=== PATIENT | male | born 1960 | race Caucasian/White ===

== ENCOUNTER → 2023-04-03 | Outpatient (CLI) | payer BC, MEDICARE ==
[~2023-04-03] MED LIST: AMLO10 PO; ASCO1ER PO; ASCO500 PO; ASPI325 PO; ASPI325EC; ASPI81EC PO; ATOR40TA; ATOR40TA PO; C-10001000 M1; CARV25; CARV25 PO; CLOP75 PO; CYAN1000; CYAN1000 PO; CYAN500 PO; ESOM20; ESOM20 PO; FISH1000 PO; FOLI1; FOLI1 PO; FURO40 PO; Fish Oil500 M1; Hair, Skin & N1 EACH; ISOMON60ER; LANS30EC PO; LISHYD2012 PO; MULVITA PO; NIFE60ER PO; NITR.4SL; OLME20; OLME20 PO; OLME20-12. PO; RANI150 PO; RANO500T; RENEXA PO; VICODIN 5-3001 EACH
[2023-04-05 17:39] LABS: FAT, FECAL - NEUTRAL Normal (Normal); FAT, FECAL - SPLIT Normal (Normal)
== END ==
LOC: LAB SHORT 10:23
PROVIDERS: Family Medicine
DX: K52.9 Noninfective gastroenteritis and colitis, unspecified (principal)
CPT/HCPCS: 82705

== ENCOUNTER 2024-02-09 18:06 | Emergency (ER) | payer BC, MEDICARE ==
[~2024-02-09] VITALS: Ht 167.6 cm; Wt 90.7 kg
[2024-02-09 19:24] VITALS: BP 156/89
[2024-02-09] MEDS ORDERED: RX Prepack 6 Tabs Oxycodone 5mg UD ONE (21:15)
== END 2024-02-09 21:24 | disposition home or self-care (01) ==
LOC: ER 18:06
DX: K04.7 Periapical abscess without sinus (principal); I25.10 Atherosclerotic heart disease of native coronary artery without angina pectoris; I10 Essential (primary) hypertension; I25.2 Old myocardial infarction; E78.5 Hyperlipidemia, unspecified; K21.9 Gastro-esophageal reflux disease without esophagitis; Z87.891 Personal history of nicotine dependence; Z79.82 Long term (current) use of aspirin; Z79.899 Other long term (current) drug therapy
CPT/HCPCS: 99283-25; A9270

== ENCOUNTER 2024-12-19 06:35 | Day surgery (SDC) | payer BC, MEDICARE ==
[~2024-12-19] VITALS: Ht 177.8 cm; Wt 93.9 kg
[~2024-12-19 06:35] MED LIST changes: +Lidocaine 1%-Epineph 1:100000 20 ML MDV ONE
[2024-12-19] MEDS ORDERED: CeFAZolin Sodium 2,000 MG VIAL ONE (06:53)
[2024-12-19] MEDS ORDERED: PANT40 PO (07:01)
[2024-12-19] MEDS ORDERED: FURO20 PO (07:01)
[2024-12-19] MEDS ORDERED: LOSA50 PO (07:02)
[2024-12-19] MEDS ORDERED: CLOP75 PO (07:02)
[2024-12-19] MEDS ORDERED: NS 500 ML IV ONE ×3 (07:15→07:29)
--- NOTE | 2024-12-19 07:15 | NUR ---
12/19/24 0715 Irena Harmon TIME OUT PERFORMED AT BEDSIDE WITH DR MANCILLA AT 0712 IMMEDIATELY PRIOR TO INJECTION OF 8ML OF SOLUTION CONSISTING OF 9ML 1% LIDOCAINE W/EPI [id number] AND 1ML 8.4% SODIUM BICARBONATE. PATIENT TOLERATED PROCEDURE WELL.
[2024-12-19 08:07] VITALS: BP 139/75
--- NOTE | 2024-12-19 08:07 | NUR ---
12/19/24 0807 NIKOLAY ROLAND DENIES PAIN AND NAUSEA
== END 2024-12-19 08:32 | disposition home or self-care (01) ==
LOC: ORSCSDS 06:35
PROVIDERS: Orthopaedic Surgery
PROC: 0JBG0ZX Excision of Right Lower Arm Subcutaneous Tissue and Fascia, Open Approach, Diagnostic (ICD-10-PCS; principal; 2024-12-19 08:00)
PROC: 01N54ZZ Release Median Nerve, Percutaneous Endoscopic Approach (ICD-10-PCS; principal; 2024-12-19 08:00)
DX: G56.03 Carpal tunnel syndrome, bilateral upper limbs (principal); I10 Essential (primary) hypertension; E78.5 Hyperlipidemia, unspecified; I25.10 Atherosclerotic heart disease of native coronary artery without angina pectoris; K21.9 Gastro-esophageal reflux disease without esophagitis; I25.2 Old myocardial infarction; E66.9 Obesity, unspecified; Z68.29 Body mass index [BMI] 29.0-29.9, adult; Z79.02 Long term (current) use of antithrombotics/antiplatelets; Z79.899 Other long term (current) drug therapy; Z87.891 Personal history of nicotine dependence
CPT/HCPCS: 88304; 88313; J0690; J7040

== ENCOUNTER 2025-01-09 07:01 | Day surgery (SDC) | payer BC, MEDICARE ==
[~2025-01-09] VITALS: Ht 177.8 cm; Wt 94.6 kg
[~2025-01-09 07:01] MED LIST changes: +FURO20 PO; +LOSA50 PO; -Lidocaine 1%-Epineph 1:100000 20 ML MDV ONE; +NS 500 ML IV ONE; +PANT40 PO
[2025-01-09] MEDS ORDERED: CeFAZolin Sodium 2,000 MG VIAL ONE (07:37)
[2025-01-09] MEDS ORDERED: GABA300 (07:41)
[2025-01-09] MEDS ORDERED: NS 500 ML IV ONE (07:56)
--- NOTE | 2025-01-09 07:57 | NUR ---
01/09/25 Berna Olmos LOCAL INJECTION DONE IN PREOP AT 0746 ON LEFT HAND. TOTAL 7ML PT TOLERATED WELL.
[2025-01-09 08:32] VITALS: BP 122/73
== END 2025-01-09 08:44 | disposition home or self-care (01) ==
LOC: ORSCSDS 07:01
PROVIDERS: Orthopaedic Surgery
PROC: 01N54ZZ Release Median Nerve, Percutaneous Endoscopic Approach (ICD-10-PCS; principal; 2025-01-09 08:30)
DX: G56.02 Carpal tunnel syndrome, left upper limb (principal); I10 Essential (primary) hypertension; E78.5 Hyperlipidemia, unspecified; I25.10 Atherosclerotic heart disease of native coronary artery without angina pectoris; I25.2 Old myocardial infarction; Z79.02 Long term (current) use of antithrombotics/antiplatelets; Z79.899 Other long term (current) drug therapy; Z87.891 Personal history of nicotine dependence; K21.9 Gastro-esophageal reflux disease without esophagitis
CPT/HCPCS: J0690; J2704; J7040